=== PATIENT | female | born 1980 | race African-American/Black ===

== ENCOUNTER → 2016-11-29 | Outpatient (CLI) | payer OTHER ==
[2016-03-11 13:30] VITALS: BP 112/61
[~2016-11-29] MED LIST: BACL10TA PO; CLIN300C8 PO; CLIN60GE TP; FAMO-63 PO; HYDR-971 PO; LURA40TA PO; NAPR500T3 PO; PROAIR HFA8.5 GM IH
--- NOTE | 2016-11-29 09:27 | PN ---
DATE: 11/29/2016 PROGRESS NOTE FOR PAIN CLINIC DIAGNOSES: Lumbar radiculopathy with lumbar herniated disk and lumbar degenerative disk disease. HISTORY OF PRESENT ILLNESS: The patient is a 36-year-old female who returns for followup, last seen about 1 year ago on 12/10/2015. The patient has undergone lumbar epidural steroid injection with near 100% improvement and reports she did very well until the last 2-3 months, the pain has been returning in her low back and bilateral lower extremities with radiation to the posterior gluteus, posterior lateral thigh, lateral anterior thighs, slightly worse on the right than the left, but present bilaterally. The patient reports no new motor or sensory deficits, no new bowel or bladder incontinence, but significant pain, rates at 8 on a scale of 10 at all times, even at its worst and its least. The patient reports it is dull, shooting, tingling, cramping, radiating. The patient did have a history of L4-L5 broad-based disk protrusion, worse on the right, but not causing mass effect on it and that was from 07/2014 MRI. The patient reports otherwise she will be doing fairly well, but the pain is returning now again for about 2-3 months, increasing in the low back and bilateral lower extremities as noted. The patient reports it awakens her from sleep at night. She can reposition and get back to sleep. Most nights it is worse with standing, walking or sitting for prolonged periods, greater than about 1 hour sitting. The patient reports no other changes. PAST MEDICAL HISTORY: Significant for nephritis, arthritis, hypertension. PREVIOUS SURGERIES: Include tubal ligation and left foot surgery. CURRENT MEDICATIONS: Include naproxen, ibuprofen, baclofen and albuterol inhaler. ALLERGIES: The patient has no known drug allergies. SOCIAL HISTORY: The patient does not drink alcohol, does not smoke or use tobacco products, lives on her own. No children living at the home. She is currently working. FAMILY HISTORY: Negative for any conditions or illnesses that she is aware of. REVIEW OF SYSTEMS: The patient's review of systems is positive for those items mentioned in history of present illness. All systems reviewed and otherwise negative. It is complete, full and well documented on the patient's chart. PHYSICAL EXAMINATION: VITAL SIGNS: Today, the patient's blood pressure is 111/61, pulse 79, respirations 18, temperature 98.3 degrees Fahrenheit, weight is 181 pounds. GENERAL: The patient is awake, alert, oriented, appropriate, has a very pleasant demeanor. HEENT: Head shows normocephalic, atraumatic. Extraocular movements are intact, symmetrical. Oral cavity: Mucous membranes moist and pink. Dentition is intact. NECK: Shows anterior throat supple without palpable lymphadenopathy noted. Swallow reflex is symmetrical. Neck shows full rotational motion of cervical spine, both laterally as well as extension and flexion without difficulty. CHEST: Shows normal on inspection. Breath sounds are clear to auscultation bilaterally. HEART: Shows S1 and S2 clear. No murmurs auscultated. ABDOMEN: Obese, soft, nontender, nondistended. No palpable organomegaly is noted. No rebound or guarding demonstrated. BACK: Shows spine grossly in the midline. Normal-appearing thoracic kyphosis and lumbar lordotic curvature. Lumbar paraspinous musculature shows symmetrical on inspection, with palpation shows some moderate tenderness but only in the lower lumbar distribution bilaterally and only diffusely without radiation. The patient shows no tenderness over the spinous processes or sacrum or sacroiliac regions. The patient has good rotational motion both laterally greater than 10 degrees right and left as well as extension greater than 10 degrees, forward flexion 45 degrees without significant pain reported. LOWER EXTREMITIES: Show deep tendon reflexes 2+ in the patellar, 1+ tendo-calcaneus tendons are equal. Motor exam is strong with 5/5 dorsiflexion, extension and approximately 4-5 with quadriceps and hamstring flexion, but symmetrical and equal bilaterally. Peripheral pulses are 1+ posterior tibial and dorsalis pedis pulses. No peripheral edema is noted. No clubbing, no cyanosis. The patient is able to stand, is walking with a normal gait, not using any assistive devices. Options were discussed with the patient. The patient's old chart was reviewed as her current medication regimen and updated. Current review of systems updated again as noted. We will start with the conservative measures first. We will try a lidocaine ointment as she has done well with this in the past by her report on the low back as well as ice and heat. We encouraged the patient to increase her activity with stretching and strengthening exercises. She has been through physical therapy in the past and reports that she remembers the exercises. We will have her do those as well. Also, try Medrol Dosepak. The patient was given instruction as well as side effects to be aware of with the medication as well as with the lidocaine ointment and if not significantly improved, we will have the patient return for potential lumbar epidural steroid injection as she did very well with this in the past as well. CIRILO BRYANT MD DR: CHARLENE/marlys JOB#: [id number] / [id number]
== END | disposition home or self-care (01) ==
LOC: PNCL 08:16
PROVIDERS: ATTEND Anesthesiology
DX: M54.16 Radiculopathy, lumbar region (principal); M51.26 Other intervertebral disc displacement, lumbar region; M51.36 Other intervertebral disc degeneration, lumbar region
CPT/HCPCS: 99212

== ENCOUNTER → 2018-02-13 | Outpatient (CLI) | payer OTHER ==
[2016-03-11 13:30] VITALS: BP 112/61
[~2018-02-13] MED LIST changes: +NAPR-514 PO; -NAPR500T3 PO
--- NOTE | 2018-02-14 01:02 | PAIN ---
DATE OF SERVICE: 02/13/2018 DIAGNOSES: Lumbar radiculopathy with lumbar herniated disk, lumbar degenerative disk disease. HISTORY OF PRESENT ILLNESS: The patient is a 37-year-old female who returns for followup status post previous lumbar epidural steroid injection in 2016. The patient had done well with Medrol Dosepak about a year ago, was seen on 11/29/2016. Did very well with this and we were able to put off any injections. The patient reports that she has been doing fairly well, but over the past month or so, the pain has been getting worse in the low back and into the right side, radiating to right lower extremity, mostly in the posterior aspect of the back, gluteus, into the right anterior medial thigh, to some extent on the medial knee on the right side. This is worse with walking, standing, change in positions. Not a result of any specific injury or action that she is aware of. Described the pain as aching and dull, radiating, on and off in intensity, better with sitting down or lying down, does not awaken her from sleep at night, worse with walking, standing, changing positions. The patient reports no new motor or sensory deficits, rates her pain as a 9 on a scale of 10 at its worst, 7 on average, 4 at its least and is a 7 today. The patient reports no radiation to the left lower extremity, but significant fatigability with the right leg with ambulation. PHYSICAL EXAMINATION: VITAL SIGNS: The patient's blood pressure 118/74, pulse 74, respirations 18, temperature 98.8 degrees Fahrenheit. GENERAL: The patient is awake, alert, oriented, appropriate, very pleasant demeanor. HEENT: Shows normocephalic, atraumatic. Extraocular movements are intact an symmetrical. The patient wears eye glasses. Oral cavity: Mucous membranes moist and pink. Dentition is intact. NECK: Shows anterior throat supple without palpable lymphadenopathy noted. Swallow reflex is symmetrical. CHEST: Shows normal with inspection. Breath sounds clear to auscultation bilaterally. HEART: Shows S1, S2 clear. No murmurs auscultated. ABDOMEN: Soft, nontender, nondistended. No palpable organomegaly is noted. No rebound or guarding demonstrated. BACK: Shows spine grossly in the midline. Slight exaggeration of thoracic kyphosis and mild flattening of lumbar lordotic curvature. Lumbar paraspinous muscle shows symmetrical on inspection. On palpation shows some [id number] tenderness, more in the right lower lumbar distribution of the paraspinous muscles on the left, but present bilaterally. The patient shows good rotational motion of the lumbar spine, both laterally as well as extension and flexion without significant difficulty. No tenderness over the sacrum or sacroiliac regions. EXTREMITIES: Lower extremities shows deep tendon reflexes at 1+ in the patellar and tendo calcaneus tendons are equal. Motor exam is approximately 5/5 with both the ankles and 4/5 with quadriceps and hamstring flexion, but is symmetrical. Peripheral pulses are 1+ posterior tibia. No peripheral edema is noted bilaterally. Options were discussed with the patient. The patient's old chart was reviewed as is her current medication regimen updated. Current review of systems is updated today as well. We will try a Medrol Dosepak. She has done very well with these in the past. The patient was given instruction as well as side effects to be aware of with the medication. If not significantly improved, we did discuss the patient returning at about 2 weeks for potential lumbar epidural steroid injection at that time. She is interested in this, but would like to try the Medrol Dosepak as she has a good success with this in the past. The patient is encouraged to maintain her activity, do stretching and strengthening exercises on her own as well as walking daily. The patient acknowledges this and will follow up after Medrol Dosepak is completed. CIRILO BRYANT MD DR: CHARLENE/marlys JOB#: [id number] / [id number]
== END | disposition home or self-care (01) ==
LOC: PNCL 08:35
PROVIDERS: ATTEND Anesthesiology
DX: M51.16 Intervertebral disc disorders with radiculopathy, lumbar region (principal)
CPT/HCPCS: 99212

== ENCOUNTER 2019-10-15 15:09 | Emergency (ER) | payer MEDICARE, MEDICAID ==
[~2019-10-15] VITALS: Ht 165.1 cm; Wt 68.1 kg
[~2019-10-15 15:09] MED LIST changes: +ALBU2.5V8 IH; +HYDR-3164 PO; -HYDR-971 PO; -PROAIR HFA8.5 GM IH
[2019-10-15 15:27] VITALS: BP 136/67
[2019-10-15] MEDS ORDERED: TRIA60LO9 TOP (15:42)
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
== END 2019-10-15 16:55 | disposition home or self-care (01) ==
LOC: ER 15:09
DX: T23.501A Corrosion of first degree of right hand, unspecified site, initial encounter (principal); T23.502A Corrosion of first degree of left hand, unspecified site, initial encounter; T32.0 Corrosions involving less than 10% of body surface; J44.9 Chronic obstructive pulmonary disease, unspecified; F17.200 Nicotine dependence, unspecified, uncomplicated; F12.90 Cannabis use, unspecified, uncomplicated; Z98.51 Tubal ligation status; Z98.890 Other specified postprocedural states; Z88.1 Allergy status to other antibiotic agents; Z91.013 Allergy to seafood; Y93.89 Activity, other specified; Y92.89 Other specified places as the place of occurrence of the external cause; Y99.8 Other external cause status
CPT/HCPCS: 99284

== ENCOUNTER 2019-11-03 14:30 | Emergency (ER) | payer MEDICARE, MEDICAID ==
[~2019-11-03] VITALS: Ht 165.1 cm; Wt 70.0 kg
[~2019-11-03 14:30] MED LIST changes: +TRIA60LO9 TOP
[2019-11-03] MEDS ORDERED: IV NORMAL SALINE 1000ML BAG 1,000 ML IV SCH (15:03)
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
[2019-11-03] MEDS ORDERED: fentaNYL PF VIAL 100 MCG/2 ML VIAL IVP ONE (15:15)
[2019-11-03 15:44] LABS: BILIRUBIN,URINE NEGATIVE (NEG); CLARITY,URINE CLEAR; COLOR,URINE YELLOW; NITRITE,URINE NEGATIVE (NEG); PROTEIN,URINE NEGATIVE (NEG-TRACE); UROBILINOGEN,URINE 0.2 mg/dL (0.2 mg/dL)
[2019-11-03 15:48] LABS: BACTERIA,URINE FEW /HPF (0-FEW); RBC,URINE OCC /HPF (0-2); SQUAMOUS EPITHELIAL CELL,UR MOD /LPF
[2019-11-03 15:51] LABS: BARBITURATES NEG (NEG); BENZODIAZEPINES NEG (NEG); CANNABINOIDS NEG (NEG); COCAINE NEG (NEG); METHADONE NEG (NEG); OPIATES NEG (NEG); PHENCYCLIDINE POS (NEG)
[2019-11-03 15:52] LABS: AMPHETAMINE/METHAMPHETAMINE NEG (NEG)
[2019-11-03] MEDS ORDERED: cefTRIAXone IV Push 1 GM VIAL. IVP ONE (16:00)
[2019-11-03 16:03] LABS: BASO # 0.1 x10^3/uL (0.0-0.2); BASO % 1 % (0-3); EOS % 0 % (0-3); HEMATOCRIT 39.4 % (36.0-47.0); HEMOGLOBIN 13.6 g/dL (12.0-15.5); LYMPH # 1.9 x10^3/uL (1.0-4.8); LYMPH % 18 % (24-48); MEAN CORPUSCULAR HEMOGLOBIN 30 pg (25-35); MEAN CORPUSCULAR HGB CONC 35 g/dL (31-37); MEAN CORPUSCULAR VOLUME 86 fL (79-100); MONO # 0.7 x10^3/uL (0.0-1.1); MONO % 7 % (0-9); NEUT # 7.6 x10^3/uL (1.8-7.7); NEUT % 75 % (31-73); PLATELET COUNT 308 x10^3/uL (140-400); RED BLOOD COUNT 4.58 x10^6/uL (3.50-5.40); RED CELL DISTRIBUTION WIDTH 13.4 % (11.5-14.5); WHITE BLOOD COUNT 10.2 x10^3/uL (4.0-11.0)
[2019-11-03 16:07] LABS: CALCIUM 8.9 mg/dL (8.5-10.1); CREATININE 0.8 mg/dL (0.6-1.0); GFR 96.1; POTASSIUM 3.4 mmol/L (3.5-5.1)
[2019-11-03 16:11] LABS: PROTHROMBIN TIME PATIENT 12.7 SEC (11.7-14.0)
[2019-11-03 16:14] LABS: ALBUMIN 3.7 g/dL (3.4-5.0); TOTAL BILIRUBIN 0.4 mg/dL (0.2-1.0); TOTAL PROTEIN 7.3 g/dL (6.4-8.2)
[2019-11-03] MEDS ORDERED: IOHEXOL 300 MG/ML 100ML VIAL. IV ONE (16:15)
[2019-11-03] MEDS ORDERED: CONTRAST GIVEN. MC PRN (16:30)
--- NOTE | 2019-11-03 16:51 | RAD ---
Examination: CT ABD PELV W/ IV CONTRST ONLY History: Reason: ABDOMINAL PAIN / Spl. Instructions: IV OMNI 300 70 MLS / Comparison/Correlation: None Findings: Axial images of the abdomen and pelvis were obtained following IV contrast. Sagittal and coronal reformatted images were provided. Visualized lung bases are clear. Liver, spleen, pancreas, adrenal glands, and left kidney are normal. Right renal superior pole cyst measuring 1.6 cm diameter is present. Hounsfield units of 25 noted. Right renal lower pole 0.9 cm diameter cyst is present with Hounsfield units of 24. It appears similar upon correlation with MRI of the lumbar spine exam dated 08/01/2014 No hydronephrosis. Appendix is normal. No bowel obstruction or extraluminal gas. Fibroid involves the right side of the uterine fundus. Urinary bladder is mostly decompressed. L5-S1 disc space narrowing is present. Impression: No acute inflammatory process or obstruction. Right renal lesions probably represent complex cysts. The larger of these is not fully visualized on the previous lumbar spine MRI exam. The smaller of these is similar to the prior MRI lumbar spine exam. Interval follow-up ultrasound examination in 4-6 months to assess stability recommended. PQRS Compliance Statement: One or more of the following individualized dose reduction techniques were utilized for this examination: 1. Automated exposure control 2. Adjustment of the mA and/or kV according to patient size 3. Use of iterative reconstruction technique Electronically signed by: Wilder Licea MD (11/03/2019 4:48 PM) [id number]
[2019-11-03] MEDS ORDERED: CEPH-264 PO (16:56)
[2019-11-03 17:32] VITALS: BP 136/80
--- NOTE | 2019-11-05 04:39 | EKG ---
[facility] [address] [place] [address] Test Date: 2019-11-03 Test Time: 15:14:53 Pat Name: HERSON MULLER Department: Room: Gender: F Supervisor [employer]: : 1980 Requested By: KRISTEL GIRON Order Number: [id number] Reading MD: Measurements Intervals [place] Rate: 80 P: 41 LA: 170 QRS: 27 QRSD: 72 T: 31 QT: 376 QTc: 437 Interpretive Statements SINUS RHYTHM QRS(T) CONTOUR ABNORMALITY CONSIDER ANTEROSEPTAL MYOCARDIAL DAMAGE POSSIBLY ABNORMAL ECG RI6.01 No previous ECG available for comparison
== END 2019-11-03 17:55 | disposition home or self-care (01) ==
LOC: ER 14:30
DX: N30.00 Acute cystitis without hematuria (principal); F16.10 Hallucinogen abuse, uncomplicated; J44.9 Chronic obstructive pulmonary disease, unspecified; F17.200 Nicotine dependence, unspecified, uncomplicated; F43.10 Post-traumatic stress disorder, unspecified; Z98.51 Tubal ligation status; Z88.1 Allergy status to other antibiotic agents; Z91.018 Allergy to other foods
CPT/HCPCS: 36415; 74177; 80053; 80307; 81001; 81025; 83690; 84484; 85025; 85610; 87086; 93005; 96374; 96375; 99285; J0696; J3010; J7030; Q9967

== ENCOUNTER 2019-12-03 23:06 | Emergency (ER) | payer MEDICARE, MEDICAID ==
[~2019-12-03] VITALS: Ht 165.1 cm; Wt 81.8 kg
[~2019-12-03 23:06] MED LIST changes: +CEPH-264 PO
[2019-12-04] MEDS ORDERED: NEOMY/BACITR/POLYMYXIN OINT PACKET. TP ONE (00:39)
[2019-12-04 00:45] VITALS: BP 117/76
[2019-12-04] MEDS ORDERED: DOXY100T PO (00:45)
[2019-12-04] MEDS ORDERED: SULF1TAB24 PO (00:45)
[2019-12-04] MEDS ORDERED: TRAM50TA PO (00:45)
--- NOTE | 2019-12-04 00:45 | PHYS DOC ---
Past Medical History Past Medical History: COPD, Other Additional Past Medical Histor: "nephritis", herniated disc in back, ptsd Past Surgical History: Tubal ligation, Other Additional Past Surgical Histo: right toe surgery Smoking Status: Current Every Day Smoker Alcohol Use: Occasionally Drug Use: Marijuana, Other General Adult EDM: Chief Complaint: LACERATION/AVULSION HPI: HPI: Patient is a 39 year old female who presents with complaints of wound on her right wrist. She reports that she wears her watch there all the time and almost never takes it off. She took it off today and noted that there was a wound there and some redness. She reports it is painful but did not say that it was any more painful than usual. She also denies any fever, chills or sweats, chest pain or shortness of breath, nausea, vomiting. She does describe the pain as an achy pain that is nonradiating and constant Review of Systems: Review of Systems: Constitutional: Denies fever or chills. [] Eyes: Denies change in visual acuity. [] HENT: Denies nasal congestion or sore throat. [] Respiratory: Denies cough or shortness of breath. [] Cardiovascular: Denies chest pain or edema. [] GI: Denies abdominal pain, nausea, vomiting, bloody stools or diarrhea. [] : Denies dysuria. [] Musculoskeletal: Denies back pain or joint pain. [] Integument: See HPI. [] Psychiatric: Denies depression or anxiety, SI or HI.[] Heart Score: Risk Factors: Risk Factors: DM, Current or recent (<one month) smoker, HTN, HLP, family hist ory of CAD, obesity. Risk Scores: Score 0 - 3: 2.5% MACE over next 6 weeks - Discharge Home Score 4 - 6: 20.3% MACE over next 6 weeks - Admit for Clinical Observation Score 7 - 10: 72.7% MACE over next 6 weeks - Early Invasive Strategies Allergies: Allergies: Allergies Coded Allergies Type Severity Reaction Last Updated Verified cinnamon Allergy Severe :It makes me pass out" 09/19/13 Yes amoxicillin Allergy Intermediate rash 09/19/13 Yes Physical Exam: PE: Constitutional: Well developed, well nourished, no acute distress, non-toxic appearance. [] Cardiovascular:Heart rate regular rhythm, no murmur [] Lungs & Thorax: Bilateral breath sounds clear to auscultation [] Abdomen: Bowel sounds normal, soft, no tenderness, no masses, no pulsatile masses. [] Skin: Warm, dry, a 1 x 0.5 cm wound is identified with a purulent base, associated with some erythema of the skin. This appears chronic. [] Extremities: No tenderness, no cyanosis, no clubbing, ROM intact, no edema. [] Neurologic: Alert and oriented X 3, normal motor function, normal sensory function, no focal deficits noted. [] Psychologic: Affect normal, judgement normal, mood normal. [] Current Patient Data: Vital Signs: Vital Signs Date Time Temp Pulse Resp B/P (MAP) Pulse Ox O2 Delivery O2 Flow Rate FiO2 12/03/19 23:35 98.4 94 20 138/80 (99) 98 Room Air 98.4 EKG: EKG: [] Radiology/Procedures: Radiology/Procedures: [] Course & Med Decision Making: Course & Med Decision Making Pertinent Labs and Imaging studies reviewed. (See chart for details) 0042-patient was seen and examined. No evidence of an exigent medical or gonzalez rgical problems identified today. However patient does have some cellulitis changes as well as an open wound. We discussed wound care. I discussed the treatment plan, reasons to return and need for follow-up. [] Dragon Disclaimer: Dragon Disclaimer: This electronic medical record was generated, in whole or in part, using a voice recognition dictation system. Departure Departure Impression: Primary Impression: Cellulitis of forearm, right Additional Impression: Skin ulcer Qualified Codes: L98.492 - Non-pressure chronic ulcer of skin of other sites with fat layer exposed Disposition: 01 HOME, SELF-CARE Condition: STABLE Referrals: CHEKO STAHL MD (PCP) Patient Instructions: Cellulitis, Wound Care, [id number] Additional Instructions: Follow-up with your doctor in the next 2 to 3 days, return to the emergency room should you have spreading redness that is not improve by the third day, fever, uncontrolled pain. Scripts Tramadol Hcl (TRAMADOL HCL) 50 Mg Tablet 50 MG PO Q6HRS PRN for PAIN, #14 TAB Prov: ERASMO RANDHAWA MD 12/04/19 Doxycycline Hyclate (DOXYCYCLINE HYCLATE) 100 Mg Tablet 1 TAB PO BID, #14 TAB Prov: ERASMO RANDHAWA MD 12/04/19 Sulfamethoxazole/Trimethoprim (BACTRIM DS TABLET) 1 Each Tablet 1 TAB PO BID for 7 Days, #14 TAB 0 Refills Prov: ERASMO RANDHAWA MD 12/04/19 Justicifation of Admission Dx: Justifications for Admission: Justification of Admission Dx: N/A ERASMO RANDHAWA MD Dec 04, 2019 00:45
== END 2019-12-04 00:49 | disposition home or self-care (01) ==
LOC: ER 23:06
DX: L03.113 Cellulitis of right upper limb (principal); L98.492 Non-pressure chronic ulcer of skin of other sites with fat layer exposed; J44.9 Chronic obstructive pulmonary disease, unspecified; F17.200 Nicotine dependence, unspecified, uncomplicated; Z88.1 Allergy status to other antibiotic agents; Z91.018 Allergy to other foods
CPT/HCPCS: 99283

== ENCOUNTER 2019-12-27 14:04 | Emergency (ER) | payer MEDICARE, MEDICAID ==
[~2019-12-27] VITALS: Ht 167.6 cm; Wt 71.3 kg
[~2019-12-27 14:04] MED LIST changes: +DOXY100T PO; +SULF1TAB24 PO; +TRAM50TA PO
[2019-12-27 15:18] LABS: BILIRUBIN,URINE NEGATIVE (NEG); CLARITY,URINE CLEAR; COLOR,URINE YELLOW; NITRITE,URINE NEGATIVE (NEG); PROTEIN,URINE NEGATIVE (NEG-TRACE); UROBILINOGEN,URINE 0.2 mg/dL (0.2 mg/dL)
[2019-12-27 15:28] LABS: BACTERIA,URINE FEW /HPF (0-FEW); RBC,URINE 0 /HPF (0-2); SQUAMOUS EPITHELIAL CELL,UR MOD /LPF; TRICHOMONAS,URINE PRESENT; WBC,URINE OCC /HPF (0-4)
[2019-12-27 15:29] LABS: BASO # 0.1 x10^3/uL (0.0-0.2); BASO % 1 % (0-3); EOS % 0 % (0-3); HEMATOCRIT 41.4 % (36.0-47.0); HEMOGLOBIN 13.8 g/dL (12.0-15.5); LYMPH # 1.7 x10^3/uL (1.0-4.8); LYMPH % 17 % (24-48); MEAN CORPUSCULAR HEMOGLOBIN 29 pg (25-35); MEAN CORPUSCULAR HGB CONC 33 g/dL (31-37); MEAN CORPUSCULAR VOLUME 86 fL (79-100); MONO # 0.5 x10^3/uL (0.0-1.1); MONO % 6 % (0-9); NEUT # 7.3 x10^3/uL (1.8-7.7); NEUT % 76 % (31-73); PLATELET COUNT 305 x10^3/uL (140-400); RED BLOOD COUNT 4.81 x10^6/uL (3.50-5.40); RED CELL DISTRIBUTION WIDTH 13.9 % (11.5-14.5); WHITE BLOOD COUNT 9.6 x10^3/uL (4.0-11.0)
[2019-12-27 15:40] LABS: CALCIUM 9.5 mg/dL (8.5-10.1); CREATININE 0.8 mg/dL (0.6-1.0); GFR 96.1; POTASSIUM 3.5 mmol/L (3.5-5.1)
[2019-12-27 15:46] LABS: ALBUMIN 4.1 g/dL (3.4-5.0); ALBUMIN/GLOBULIN RATIO 1.1 (1.0-1.7); TOTAL BILIRUBIN 0.3 mg/dL (0.2-1.0)
[2019-12-27 16:15] VITALS: BP 122/65
[2019-12-27] MEDS ORDERED: TERB125S TP (18:28)
[2019-12-27] MEDS ORDERED: CLIN150C14 PO (18:28)
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
== END 2019-12-27 19:27 | disposition home or self-care (01) ==
LOC: ER 14:04
DX: S60.411A Abrasion of left index finger, initial encounter (principal); S61.301A Unspecified open wound of left index finger with damage to nail, initial encounter; B35.2 Tinea manuum; J44.9 Chronic obstructive pulmonary disease, unspecified; F43.10 Post-traumatic stress disorder, unspecified; F17.200 Nicotine dependence, unspecified, uncomplicated; Z88.1 Allergy status to other antibiotic agents; Z91.018 Allergy to other foods; W18.39XA Other fall on same level, initial encounter; Y93.89 Activity, other specified; Y92.89 Other specified places as the place of occurrence of the external cause; Y99.8 Other external cause status
CPT/HCPCS: 36415; 80053; 81001; 83605; 85025; 87086; 99283

== ENCOUNTER 2020-02-06 09:53 | Emergency (ER) | payer MEDICARE, MEDICAID ==
[~2020-02-06] VITALS: Ht 165.1 cm; Wt 80.0 kg
[~2020-02-06 09:53] MED LIST changes: +CLIN150C14 PO; +TERB125S TP
[2020-02-06 11:02] VITALS: BP 122/65
--- NOTE | 2020-02-06 11:24 | RAD ---
WRIST 3V RIGHT DATE: 02/06/2020 10:19 AM INDICATION: Pain, injury COMPARISON: None. FINDINGS: Bones: There is no evidence of acute fracture or dislocation. Joints: The joint spaces are normal. Miscellaneous: None. IMPRESSION: No evidence of acute fracture. Electronically signed by: Chris Lugo MD (02/06/2020 11:21 AM) [id number]
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
[2020-02-06] MEDS ORDERED: ACETAMINOPHEN 500 MG TABLET PO ONE (12:00)
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
== END 2020-02-06 14:08 | disposition home or self-care (01) ==
LOC: ER 09:53
DX: S00.83XA Contusion of other part of head, initial encounter (principal); M25.531 Pain in right wrist; M25.562 Pain in left knee; M79.662 Pain in left lower leg; R60.0 Localized edema; J44.9 Chronic obstructive pulmonary disease, unspecified; F17.200 Nicotine dependence, unspecified, uncomplicated; F12.90 Cannabis use, unspecified, uncomplicated; Z98.51 Tubal ligation status; Z98.890 Other specified postprocedural states; Y08.89XA Assault by other specified means, initial encounter; Y93.89 Activity, other specified; Y92.89 Other specified places as the place of occurrence of the external cause; Y99.8 Other external cause status
CPT/HCPCS: 29125; 70450; 70486; 72125; 73110; 73562; 73590; 99285

== ENCOUNTER 2021-02-10 08:02 | Emergency (ER) | payer OTHER, MEDICARE, MEDICAID ==
[~2021-02-10] VITALS: Ht 165.1 cm; Wt 84.0 kg
[~2021-02-10 08:02] MED LIST changes: +CLIN-94 PO; -CLIN150C14 PO; +CLIN150C16 PO; -CLIN300C8 PO
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
[2021-02-10] MEDS ORDERED: NAPR-682 PO (09:31)
[2021-02-10 09:46] VITALS: BP 100/52
== END 2021-02-10 09:52 | disposition home or self-care (01) ==
LOC: ER 08:02
DX: S20.212A Contusion of left front wall of thorax, initial encounter (principal); J44.9 Chronic obstructive pulmonary disease, unspecified; F17.200 Nicotine dependence, unspecified, uncomplicated; Z98.51 Tubal ligation status; Z88.1 Allergy status to other antibiotic agents; Z91.018 Allergy to other foods; V43.62XA Car passenger injured in collision with other type car in traffic accident, initial encounter; Y92.488 Other paved roadways as the place of occurrence of the external cause; Y93.89 Activity, other specified; Y99.8 Other external cause status
CPT/HCPCS: 71101; 99283

== ENCOUNTER 2021-04-16 17:41 | Emergency (ER) | payer OTHER, MEDICARE, MEDICAID ==
[~2021-04-16] VITALS: Ht 162.6 cm; Wt 86.7 kg
[~2021-04-16 17:41] MED LIST changes: +NAPR-682 PO
[2021-04-16] MEDS ORDERED: IV NORMAL SALINE 1000ML BAG 1,000 ML IV ONE (21:00)
[2021-04-16 21:29] LABS: BILIRUBIN,URINE NEGATIVE (NEG); CLARITY,URINE CLEAR; COLOR,URINE YELLOW; NITRITE,URINE NEGATIVE (NEG); PH,URINE 6.5 (<5.0-8.0); PROTEIN,URINE NEGATIVE (NEG-TRACE); UROBILINOGEN,URINE 0.2 mg/dL (0.2 mg/dL)
[2021-04-16 21:37] LABS: BARBITURATES NEG (NEG); BENZODIAZEPINES NEG (NEG); CANNABINOIDS NEG (NEG); COCAINE NEG (NEG); METHADONE NEG (NEG); OPIATES NEG (NEG); PHENCYCLIDINE POS (NEG)
[2021-04-16 21:38] LABS: AMPHETAMINE/METHAMPHETAMINE NEG (NEG)
[2021-04-16 21:41] LABS: BACTERIA,URINE FEW /HPF (0-FEW); RBC,URINE 0 /HPF (0-2)
[2021-04-16 21:48] LABS: BASO # 0.1 x10^3/uL (0.0-0.2); BASO % 1 % (0-3); EOS # 0.1 x10^3/uL (0.0-0.7); EOS % 1 % (0-3); HEMATOCRIT 34.9 % (36.0-47.0); HEMOGLOBIN 11.5 g/dL (12.0-15.5); LYMPH # 3.1 x10^3/uL (1.0-4.8); LYMPH % 32 % (24-48); MEAN CORPUSCULAR HEMOGLOBIN 28 pg (25-35); MEAN CORPUSCULAR HGB CONC 33 g/dL (31-37); MEAN CORPUSCULAR VOLUME 84 fL (79-100); MONO # 0.8 x10^3/uL (0.0-1.1); MONO % 8 % (0-9); NEUT # 5.6 x10^3/uL (1.8-7.7); NEUT % 58 % (31-73); PLATELET COUNT 288 x10^3/uL (140-400); RED BLOOD COUNT 4.17 x10^6/uL (3.50-5.40); RED CELL DISTRIBUTION WIDTH 14.6 % (11.5-14.5); WHITE BLOOD COUNT 9.7 x10^3/uL (4.0-11.0)
[2021-04-16 22:02] LABS: CALCIUM 8.2 mg/dL (8.5-10.1); CREATININE 0.8 mg/dL (0.6-1.0); GFR 95.6; POTASSIUM 3.2 mmol/L (3.5-5.1)
[2021-04-16 22:08] LABS: ALBUMIN 3.5 g/dL (3.4-5.0); ALBUMIN/GLOBULIN RATIO 0.9 (1.0-1.7); MAGNESIUM 2.4 mg/dL (1.8-2.4); TOTAL BILIRUBIN 0.2 mg/dL (0.2-1.0); TOTAL PROTEIN 7.3 g/dL (6.4-8.2)
[2021-04-16] MEDS ORDERED: HYOS0.1265 SL (22:42)
--- NOTE | 2021-04-16 22:43 | PHYS DOC ---
Past Medical History Past Medical History: COPD, Other Additional Past Medical Histor: "nephritis", herniated disc in back, ptsd Past Surgical History: Other Additional Past Surgical Histo: right toe surgery Smoking Status: Current Every Day Smoker Alcohol Use: Occasionally Drug Use: Marijuana, Other General Adult EDM: Chief Complaint: ABDOMINAL PAIN HPI: HPI: Patient is a 40-year-old female who presents to the ED with abdominal pain. Patient states that she has been having abdominal pain for the last couple of weeks due to the patient's "rare kidney disease". Patient says that it was her left kidney that it was diagnosed when she was 4 years old and the only medications she is currently taking for it are baclofen and naproxen. Patient says her last MRI was 1 to 2 years ago at [facility]. Patient states the pain has been off and on and says it feels different than her menstrual pain, but does note that she has had some urinary frequency off and on with no burning as well as some discharge that looked like tissue. Patient patient is not currently sexually active and has regularly monthly periods that have not changed. Patient has 2 adult children, with no other issues noted from . Patient states she is the only person in her family with this diagnosis, and that no one else to her knowledge has a similar issue. Review of Systems: Review of Systems: Constitutional: Denies fever or chills Eyes: Denies redness or eye pain HENT: Denies nasal congestion or sore throat Respiratory: Denies cough or shortness of breath Cardiovascular: Denies chest pain or palpitations GI: Endorses abdominal pain; denies nausea, or vomiting : Denies dysuria or hematuria Musculoskeletal: Denies back pain or joint pain Integument: Denies rash or skin lesions Neurologic: Denies headache, or sensory changes Complete systems were reviewed and found to be within normal limits, except as documented in this note. Heart Score: C/O Chest Pain: N/A Current Medications: Current Medications Medications (Trade) Dose Ordered Sig/Marleny Start Time Stop Time Status Last Admin Dose Admin Hyoscyamine (Anaspaz) 0.125 mg 1X ONCE 04/16/21 23:00 04/16/21 23:01 Ketorolac Tromethamine (Toradol 15mg Vial) 15 mg 1X ONCE 04/16/21 22:45 12/31/21 22:46 UNV Potassium Chloride (Klor-Con) 40 meq 1X ONCE 04/16/21 22:45 04/16/21 22:46 UNV Sodium Chloride 1,000 ml @ 1,000 mls/hr 1X ONCE 04/16/21 21:00 04/16/21 21:59 DC Allergies: Allergies: Allergies Coded Allergies Type Severity Reaction Last Updated Verified cinnamon Allergy Severe :It makes me pass out" 09/19/13 Yes amoxicillin Allergy Intermediate rash 09/19/13 Yes Physical Exam: PE: Constitutional: Disheveled with all her belongings, adequately nourished, no acute distress noted to be tired, non-toxic appearance HENT: Normocephalic, atraumatic Eyes: Conjunctiva normal, no discharge Neck: Normal range of motion, no tenderness, supple Lungs & Thorax: No respiratory distress, equal chest rise and fall Abdomen: Soft, no tenderness Skin: Warm, dry, no erythema, no rash Back: No tenderness, no CVA tenderness Extremities: No tenderness, ROM intact, no edema Neurologic: Alert and oriented X 3, no focal deficits noted Psychologic: Affect normal, judgment normal Current Patient Data: Labs: Laboratory Tests Test 04/16/21 21:10 04/16/21 21:17 04/16/21 21:35 Urine Collection Type Unknown Urine Color Yellow Urine Clarity Clear Urine pH 6.5 (<5.0-8.0) Urine Specific [place] <=1.005 (1.000-1.030) Urine Protein Negative mg/dL (NEG-TRACE) Urine Glucose (UA) Negative mg/dL (NEG) Urine Ketones (Stick) Negative mg/dL (NEG) Urine Blood Negative (NEG) Urine Nitrite Negative (NEG) Urine Bilirubin Negative (NEG) Urine Urobilinogen Dipstick 0.2 mg/dL (0.2 mg/dL) Urine Leukocyte Esterase Trace (NEG) Urine RBC 0 /HPF (0-2) Urine WBC 5-10 /HPF (0-4) Urine Squamous Epithelial Cells Many /LPF Urine Bacteria Few /HPF (0-FEW) Urine Opiates Screen Neg (NEG) Urine Methadone Screen Neg (NEG) Urine Barbiturates Neg (NEG) Urine Phencyclidine Screen Pos (NEG) Urine Amphetamine/Methamphetamine Neg (NEG) Urine Benzodiazepines Screen Neg (NEG) Urine Cocaine Screen Neg (NEG) Urine Cannabinoids Screen Neg (NEG) Urine Ethyl Alcohol Neg (NEG) POC Urine HCG, Qualitative Hcg negative (Negative) White Blood Count 9.7 x10^3/uL (4.0-11.0) Red Blood Count 4.17 x10^6/uL (3.50-5.40) Hemoglobin 11.5 g/dL (12.0-15.5) L Hematocrit 34.9 % (36.0-47.0) L Mean Corpuscular Volume 84 fL (79-100) Mean Corpuscular Hemoglobin 28 pg (25-35) Mean Corpuscular Hemoglobin Concent 33 g/dL (31-37) Red Cell Distribution Width 14.6 % (11.5-14.5) H Platelet Count 288 x10^3/uL (140-400) Neutrophils (%) (Auto) 58 % (31-73) Lymphocytes (%) (Auto) 32 % (24-48) Monocytes (%) (Auto) 8 % (0-9) Eosinophils (%) (Auto) 1 % (0-3) Basophils (%) (Auto) 1 % (0-3) Neutrophils # (Auto) 5.6 x10^3/uL (1.8-7.7) Lymphocytes # (Auto) 3.1 x10^3/uL (1.0-4.8) Monocytes # (Auto) 0.8 x10^3/uL (0.0-1.1) Eosinophils # (Auto) 0.1 x10^3/uL (0.0-0.7) Basophils # (Auto) 0.1 x10^3/uL (0.0-0.2) Sodium Level 141 mmol/L (136-145) Potassium Level 3.2 mmol/L (3.5-5.1) L Chloride Level 104 mmol/L (98-107) Carbon Dioxide Level 26 mmol/L (21-32) Anion Gap 11 (6-14) Blood Urea Nitrogen 7 mg/dL (7-20) Creatinine 0.8 mg/dL (0.6-1.0) Estimated GFR (Cockcroft-Gault) 95.6 BUN/Creatinine Ratio 9 (6-20) Glucose Level 109 mg/dL (70-99) H Calcium Level 8.2 mg/dL (8.5-10.1) L Magnesium Level 2.4 mg/dL (1.8-2.4) Total Bilirubin 0.2 mg/dL (0.2-1.0) Aspartate Amino Transferase (AST) 20 U/L (15-37) Alanine Aminotransferase (ALT) 19 U/L (14-59) Alkaline Phosphatase 66 U/L (46-116) Creatine Kinase 164 U/L (26-192) Creatine Kinase MB (Mass) 1.2 ng/mL (0.0-3.6) Creatine Kinase MB Relative Index 0.7 % (0-4) Troponin I High Sensitivity 7 ng/L (4-50) Total Protein 7.3 g/dL (6.4-8.2) Albumin 3.5 g/dL (3.4-5.0) Albumin/Globulin Ratio 0.9 (1.0-1.7) L Lipase 64 U/L (73-393) L Ethyl Alcohol Level < 10 mg/dL (0-10) Laboratory Tests 04/16/21 21:35 Laboratory Tests 04/16/21 21:35 Vital Signs: Vital Signs Date Time Temp Pulse Resp B/P (MAP) Pulse Ox O2 Delivery O2 Flow Rate FiO2 04/16/21 18:51 97.7 71 12 129/54 (79) 97 Room Air 97.7 EKG: EK 04/16/21 - EKG shows normal sinus rhythm - HR 55, QRS-78ms, Qt/QTc 576/554ms Radiology/Procedures: Radiology/Procedures: [] Course & Med Decision Making: Course & Med Decision Making Pertinent Lab studies reviewed. (See chart for details) Patient is a 40-year-old female who is presented to the ED for abdominal pain. 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 Patient has also talked about some urinary frequency and some cramping pain. Due to the patient's history of kidney disease we got a urinary sample and blood work which were both normal except for some mild hypokalemia which was treated with potassium supplementation in the ED. Of note patient's urine was positive for PCP. Patient's kidney function was normal. Because of these labs and patient's vitals we are prescribing some pain relief and giving the first dose in the ED. Patient was told to follow-up at [facility] with her kidney doctor for further studies. Patient stable for discharge with outpatient follow-up with PCP. Discussed findings and plan with patient, who acknowledges understanding and agreement. Fernando Disclaimer: Dragnikki Disclaimer: This electronic medical record was generated, in whole or in part, using a voice recognition dictation system. Departure Departure Impression: Primary Impression: Abdominal pain Qualified Codes: R10.30 - Lower abdominal pain, unspecified Additional Impression: Hypokalemia Disposition: HOME / SELF CARE / HOMELESS Condition: STABLE Referrals: CHEKO STAHL MD (PCP) Patient Instructions: Abdominal Pain (Nonspecific), Hypokalemia, Potassium Content of Foods Scripts Hyoscyamine Sulfate (LEVSIN-SL) 0.125 Mg Tab.subl 0.125 MG SL Q4-6HRS PRN for PAIN, #14 TAB Prov: RONNIE BEST DO 04/16/21 RONNIE BEST DO Apr 16, 2021 22:43
[2021-04-16] MEDS ORDERED: KETOROLAC 30 MG/ML VIAL. IVP ONE (23:00)
[2021-04-16] MEDS ORDERED: HYOSCYAMINE 0.125 MG TAB.RAPDIS PO ONE (23:00)
[2021-04-16] MEDS ORDERED: POTASSIUM CHLORIDE 20 MEQ TABLET.ER. PO ONE (23:00)
[2021-04-16 23:15] VITALS: BP 117/78
--- NOTE | 2021-04-17 02:52 | EKG ---
[facility] [address] [place] [address] Test Date: 2021-04-16 Test Time: 22:32:56 Pat Name: HERSON MULLER Department: Room: Gender: F Payable Manager: : 1980 Requested By: RONNIE BEST Order Number: [id number] Reading MD: Nathaniel Harp Measurements Intervals [place] Rate: 55 P: 54 MD: 180 QRS: 42 QRSD: 78 T: 100 QT: 576 QTc: 554 Interpretive Statements SINUS RHYTHM T ABNORMALITY IN HIGH LATERAL LEADS PROLONGED QT ABNORMAL ECG Electronically Signed On 04-18-2021 10:16:50 [employer] by Nathaniel Harp
== END 2021-04-16 23:35 | disposition home or self-care (01) ==
LOC: ER 17:41
DX: R10.30 Lower abdominal pain, unspecified (principal); J44.9 Chronic obstructive pulmonary disease, unspecified; F43.10 Post-traumatic stress disorder, unspecified; F17.200 Nicotine dependence, unspecified, uncomplicated; Z88.1 Allergy status to other antibiotic agents; Z88.8 Allergy status to other drugs, medicaments and biological substances
CPT/HCPCS: 36415; 80053; 80307; 81001; 81025; 82553; 83690; 83735; 84484; 85025; 87086; 93005; 96361; 96374; 99285; G0480; J1885; J7030